=== PATIENT | male | born 1990 | race Caucasian/White ===

== ENCOUNTER 2016-09-07 18:48 | Emergency (ER) | payer OTHER ==
--- NOTE | 2016-09-07 18:43 | US ---
Left Lower Extremity Ultrasound and Venous Duplex Doppler Study History: Calf pain, history of tibial plateau fracture. Comparison: None available. Technique: High frequency transducer was used for imaging and Doppler study of the veins of the left lower extremity. Pulsed Doppler and color Doppler were utilized, along with various maneuvers to a ssess flow in the veins. Findings: The gastrocnemius veins in the proximal calf are occluded. The deep veins of the lower extremity are otherwise normally compressible between the groin and the upper calf with normal Doppler waveforms wi thin them. Impression: DVT involving the gastrocnemius veins in the proximal calf. Findings discussed with Lexi Canada today at 1840 hours.
[2016-09-07 18:58] VITALS: BP 132/81; PULSE 83; RESP 18; TEMP 98.2; O2SAT 93
--- NOTE | 2016-09-07 19:07 | EDPHY ---
H & P Stated Complaint: l tibial plateau fx/us shows l dvt Time Seen by Provider: 09/07/16 19:02 HPI/ROS: CHIEF COMPLAINT: Left calf swelling, history of tibial plateau fracture HISTORY OF PRESENT ILLNESS: The patient presents to the ED after he was noted to have some swelling in his left calf earlier today. The patient sustained a tibial plateau fracture approximately 1 week ago. He had an MRI performed today and is scheduled to undergo surgery on Sunday. While getting his MRI, calf swelling was noted which prompted the patient to get a ultrasound which demonstrated an isolated DVT in the gastroc vein. The patient has no complaints of chest pain or shortness of breath. The patient is currently in a knee immobilizer and using crutches. REVIEW OF SYSTEMS: A comprehensive 10 point review of systems is otherwise negative aside from elements mentioned in the history of present illness. Source: Patient Exam Limitations: No limitations - Personal History Current Tetanus/Diphtheria Vaccine: No - Medical/Surgical History Hx Asthma: No Hx Chronic Respiratory Disease: No Hx Diabetes: No Hx Cardiac Disease: No Hx Renal Disease: No Hx Cirrhosis: No Hx Alcoholism: No Hx HIV/AIDS: No Hx Splenectomy or Spleen Trauma: No Other PMH: tibial plateau fx left - Social History Smoking Status: Never smoked - Physical Exam Exam: General Appearance: Alert, no distress Respiratory: There are no retractions, lungs are clear to auscultation Cardiovascular: Regular rate and rhythm Gastrointestinal: Abdomen is soft and nontender, no masses, bowel sounds normal Neurological: Sensation intact to light touch throughout the left lower extremity Skin: Warm and dry, no rashes Musculoskeletal: Knee immobilizer applied to left lower extremity Extremities: Left knee effusion noted, left calf tenderness with mild soft tissue swelling Constitutional: Initial Vital Signs Temperature (C) 36.8 C 09/07/16 18:54 Heart Rate 83 09/07/16 18:54 Respiratory Rate 18 09/07/16 18:54 Blood Pressure 132/81 H 09/07/16 18:54 O2 Sat (%) 93 09/07/16 18:54 O2 Delivery Mode Room Air Allergies/Adverse Reactions: No Known Allergies Allergy (Unverified 09/07/16 18:54) Home Medications: Medication Instructions Recorded NK [No Known Home Meds] 09/07/16 Medical Decision Making - Diagnostics Imaging: Left Lower Extremity Ultrasound and Venous Duplex Doppler Study History: Calf pain, history of tibial plateau fracture. Comparison: None available. Technique: High frequency transducer was used for imaging and Doppler study of the veins of the left lower extremity. Pulsed Doppler and color Doppler were utilized, along with various maneuvers to assess flow in the veins. Findings: The gastrocnemius veins in the proximal calf are occluded. The deep veins of the lower extremity are otherwise normally compressible between the groin and the upper calf with normal Doppler waveforms within them. Impression: DVT involving the gastrocnemius veins in the proximal calf. ED Course/Re-evaluation: The patient presents to the ED with an isolated calf vein thrombosis in his gastroc vein. These are debatable whether to treat based upon current medical literature. Because the patient is scheduled to undergo surgery I did attempt to reach his regular surgeon Dr. Tyree Rivera office but was only able to contact the on-call covering physician Dr. Cast. I spoke with Dr. Cast. He will have Dr. Tyree Rivera contact the patient tomorrow to schedule a follow- up visit. At this point time anticoagulation will be withheld pending an evaluation by his primary orthopedic surgeon. It may be reasonable to withhold anticoagulation and complete surgery. Departure - Departure Disposition: Home, Routine, Self-Care Clinical Impression: Deep vein thrombosis (DVT) of distal vein of lower extremity Condition: Good Instructions: Deep Venous Thrombosis (ED) Additional Instructions: 1. Please contact Dr. Tyree Rivera tomorrow to discuss the ultrasound findings today. It is debatable in the medical literature whether there is any benefit of treating a isolated DVT in the gastroc vein which is what we know on your ultrasound today. Given your scheduled surgery I would like a orthopedic surgeon to make this decision. 2. You should have a repeat ultrasound done in 2 weeks to assess progression. 3. You should return to the ED immediately for increasing calf pain, swelling, shortness of breath or other concerns. Referrals: Tyree Rivera MD [Medical Doctor] - As per Instructions
== END 2016-09-07 20:05 | disposition home or self-care (01) ==
DX: I82.4Z2 Acute embolism and thrombosis of unspecified deep veins of left distal lower extremity (principal)